=== PATIENT | male | born 2000 | race Caucasian/White ===

== ENCOUNTER 2018-06-17 00:25 | Emergency (ER) | payer BC ==
[~2018-06-17] VITALS: Ht 180.3 cm; Wt 81.8 kg
[2018-06-17 00:31] VITALS: BP 124/69; TEMP 97.8
[2018-06-17] MEDS ORDERED: LEXAPRO 10MG10 MG PO (00:48)
[2018-06-17 01:35] VITALS: PULSE 118
== END 2018-06-17 01:35 | disposition home or self-care (01) ==
LOC: COL.ER 00:25
DX: S01.81XA Laceration without foreign body of other part of head, initial encounter (principal); W19.XXXA Unspecified fall, initial encounter; W22.8XXA Striking against or struck by other objects, initial encounter; Y92.009 Unspecified place in unspecified non-institutional (private) residence as the place of occurrence of the external cause